=== PATIENT | male | born 1990 | race African-American/Black ===

== ENCOUNTER 2022-04-12 01:18 | Emergency (ER) | payer OTHER ==
[2022-04-12] MEDS ORDERED: IBUPROFEN 400 MG TABLET (FP) PO ONE ×2 (01:53→02:02)
[2022-04-12 02:07] VITALS: BP 125/86; PULSE 102; RESP 17; TEMP 100.1; BMI 33.5
[2022-04-12 03:37] LABS: THROAT:GRP A STREP NOT DETECTED (NOTDETECTED)
== END 2022-04-12 04:12 | disposition home or self-care (01) ==
LOC: JER 01:18
DX: J02.9 Acute pharyngitis, unspecified (principal); R05.1 Acute cough; R50.9 Fever, unspecified
CPT/HCPCS: 0241U-QW; 87651; 99283-25